=== PATIENT | female | born 1955 | race Caucasian/White ===

== ENCOUNTER 2018-09-10 17:44 | Emergency (ER) | payer OTHER ==
--- NOTE | 2018-09-10 17:49 | ED Physician Documentation ---
General Adult - HISTORIAN Historian: patient - HPI Stated Complaint: laceration to right hand Chief Complaint: Laceration/Recheck/Suture Onset: minutes (30) Timing: still present Severity: mild Further Comments: yes (She was pushing trash in the trash can and cut her hand on a can. She is not UTD on tetanus . No other complaints) Last known Well Code/Unknown Code: Unknown - ROS CONST: no problems - PAST HX Past History: hypertension Immunizations: tetanus - SOCIAL HX Smoking History: non-smoker Alcohol Use: none Drug Use: none - FAMILY HX Family History: Yes - REVIEWED ASSESSMENTS Nursing Assessment Reviewed: Yes Vitals Reviewed: Yes Procedures Wound Location: upper extremity (right hand ) Suture Size/Type: 4:0 Number of Sutures: 5 Layer Closure?: No ED Results Lab/Radiology - Orders Orders: ED Orders Category Date Time Status Apply/change dressing NOW Care 09/10/18 17:51 Ordered Cleanse with NS and Chlorhexid 1T Care 09/10/18 17:51 Ordered Triple Antibiotic Ointment 1T Care 09/10/18 17:51 Ordered Diph,Pertuss(Acell),Tet Vac/Pf [Adacel] Med 09/10/18 17:51 Once 0.5 ml IM .ONCE ONE Lidocaine 1% 5ml(IM or SUTURE) [Xylocaine] Med 09/10/18 17:51 Once 50 mg IJ NOW ONE General Adult Physical Exam - PHYSICAL EXAM GENERAL APPEARANCE: no distress EENT: eye inspection normal NECK: normal inspection RESPIRATORY: no resp distress CVS: reg rate & rhythm, heart sounds normal ABDOMEN: soft SKIN: warm/dry, normal color, other (right hand 3 cm laceration on lateral side of hand ) EXTREMITIES: non-tender, normal range of motion, no evidence of injury, no edema NEURO: oriented X3 Discharge Clincal Impression: Laceration of right hand Qualifiers: Encounter type: initial encounter Foreign body presence: without foreign body Qualified Code(s): S61.411A - Laceration without foreign body of right hand, initial encounter Referrals: Batsheva Seth MD [Primary Care Provider] - 2 Days Comments: 1. Keflex 500 mg take 1 by mouth twice daily x 10 2. Keep area clean and dry 3. Sutures out 7-10 days 4. Return to ER for any concerns Condition: Stable Disposition: 01 HOME, SELF-CARE Decision to Admit: NO Date of Sepison to Admit: 09/10/18 Decision Time: 18:17
[2018-09-10] MEDS ORDERED: DIPH,PERTUSS(ACELL),TET VAC/PF 0.5 ML DISP.SYRIN IM ONE (17:51)
[2018-09-10] MEDS ORDERED: LIDOCAINE HCL 1% PF 50MG/5ML AMP (IM/SUTURE/PAIN CLINIC) IJ ONE (17:51)
[2018-09-10 18:59] VITALS: BP 177/98
== END 2018-09-10 18:23 | disposition home or self-care (01) ==
LOC: ED 17:44
DX: S61.411A Laceration without foreign body of right hand, initial encounter (principal); W26.8XXA Contact with other sharp object(s), not elsewhere classified, initial encounter; Y92.9 Unspecified place or not applicable; Y93.89 Activity, other specified
CPT/HCPCS: 12002; 90471; 90715; 99282; J7030